=== PATIENT | male | born 1990 | race American Indian/Alaskan Native ===

== ENCOUNTER 2018-08-17 21:25 | Emergency (ER) | payer SELFPAY ==
--- NOTE | 2018-08-17 21:44 | ED PDOC ---
Arrival/HPI - General Time Seen by Provider: 08/17/18 21:44 Historian: Patient - History of Present Illness Narrative History of Present Illness (Text): 08/17/18 21:44 27 y/o male, no significant pmh, nkda, c/o lt. sided neck pain x 2 days with no fall or trauma. Pt. stated that he was sleeping on the floor without pillow about 2 days ago, woke up with lt. sided neck pain, no fever or chills, no headache (Pt. disagreed with the triage) or night sweat, no neck stiffness, no change in vision, no pain medication taken at home, no rash, no other medical or psychological complaints. I reviewed the triaging note, and the patient disagree with the triage Past Medical History - Provider Review Nursing Documentation Reviewed: Yes Family/Social History - Physician Review Nursing Documentation Reviewed: Yes Family/Social History: Unknown Family HX Allergies/Home Meds Allergies/Adverse Reactions: Allergies No Known Allergies Allergy (Verified 08/17/18 22:01) Review of Systems - Review of Systems Constitutional: absent: Fatigue, Fevers Eyes: absent: Vision Changes ENT: absent: Hearing Changes Respiratory: absent: SOB, Cough Cardiovascular: absent: Chest Pain Gastrointestinal: absent: Abdominal Pain, Nausea, Vomiting Musculoskeletal: Neck Pain. absent: Arthralgias, Back Pain, Joint Swelling, Myalgias Skin: absent: Rash, Pruritis Neurological: absent: Headache, Dizziness Psychiatric: absent: Anxiety, Depression, Suicidal Ideation Physical Exam Vital Signs Reviewed: Yes Temperature: Afebrile Blood Pressure: Hypertensive Pulse: Regular Respiratory Rate: Normal Appearance: Positive for: Well-Appearing, Non-Toxic Pain Distress: Moderate Mental Status: Positive for: Alert and Oriented X 3 - Systems Exam Head: Present: Atraumatic, Normocephalic Pupils: Present: PERRL Extroacular Muscles: Present: EOMI Conjunctiva: Present: Normal Ears: Present: NORMAL TM, Normal Canal. No: Erythema Mouth: Present: Moist Mucous Membranes Nose (External): Present: Atraumatic. No: Abrasion, Contusion, Laceration Nose (Internal): Present: Normal Inspection, No Active Bleeding. No: Rhinorrhea, Septal Deviation, Septal Hematoma, Epistaxis Neck: Present: Normal Range of Motion, Paraspinal Tenderness (lt. paraspinal muscle region), Trachea Midline. No: Meningeal Signs, MIDLINE TENDERNESS, Lymphadenopathy Respiratory/Chest: Present: Clear to Auscultation, Good Air Exchange. No: Respiratory Distress, Accessory Muscle Use Cardiovascular: Present: Regular Rate and Rhythm, Normal S1, S2. No: Murmurs Abdomen: No: Tenderness, Distention, Peritoneal Signs, Rebound, Guarding Back: Present: Normal Inspection. No: CVA Tenderness, Midline Tenderness, Paraspinal Tenderness Upper Extremity: Present: Normal Inspection. No: Cyanosis, Edema Lower Extremity: Present: Normal Inspection. No: Edema Neurological: Present: GCS=15, CN II-XII Intact, Speech Normal, Motor Func Grossly Intact, Gait Normal, Memory Normal Skin: Present: Warm, Dry, Normal Color. No: Rashes Psychiatric: Present: Alert, Oriented x 3, Normal Insight, Normal Concentration Medical Decision Making ED Course and Treatment: 08/17/18 22:08 -Toradol 60mg IM -Pt. request to be discharged home. -Discharge home with naproxen, flexeril, bed rest, heat compression, follow up with your own pmd within 2 days, return to the ER for any new or worsening signs or symptoms. 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 Disposition/Present on Arrival - Present on Arrival Any Indicators Present on Arrival: No History of DVT/PE: No History of Uncontrolled Diabetes: No Urinary Catheter: No History of Decub. Ulcer: No - Disposition Have Diagnosis and Disposition been Completed?: Yes Diagnosis: Neck pain, Trapezius strain Disposition: HOME/ ROUTINE Disposition Time: 22:09 Patient Plan: Discharge Patient Problems: Current Active Problems Problem Status Onset Neck pain Acute Trapezius strain Acute Condition: GOOD Additional Instructions: -Discharge home with naproxen, flexeril, bed rest, heat compression, follow up with your own pmd within 2 days, return to the ER for any new or worsening signs or symptoms. Prescriptions: Cyclobenzaprine [Cyclobenzaprine HCl] 10 mg PO TID PRN #21 tab PRN Reason: Other Naproxen 500 mg PO BID PRN #20 tablet PRN Reason: Other Referrals: Bayron Curtis III, MD [Medical Doctor] - Follow up with primary Forms: WORK NOTE
[2018-08-17 21:52] VITALS: BMI 24.3
[2018-08-17 23:05] VITALS: BP 148/82; PULSE 82; RESP 18; TEMP 97.8; O2SAT 98
== END 2018-08-17 23:13 | disposition home or self-care (01) ==
LOC: ED 21:25
DX: S29.012A Strain of muscle and tendon of back wall of thorax, initial encounter (principal); X50.1XXA Overexertion from prolonged static or awkward postures, initial encounter; Y92.89 Other specified places as the place of occurrence of the external cause; M54.2 Cervicalgia
CPT/HCPCS: 96372; 99283; J1885

== ENCOUNTER 2018-12-10 18:14 | Emergency (ER) | payer SELFPAY ==
[2018-12-10 18:46] VITALS: BMI 25.5
[2018-12-10 18:48] VITALS: TEMP 98
--- NOTE | 2018-12-10 19:09 | ED PDOC ---
Arrival/HPI - General Chief Complaint: Cough, Cold, Congestion Time Seen by Provider: 12/10/18 18:59 Historian: Patient - History of Present Illness Narrative History of Present Illness (Text): 12/10/18 19:07 28-year-old male w/ no PMH, complaining of cough, cold, sore throat and congestion x 4 days, and then this morning he woke up with a hoarse voice. Otherwise reports of fever, chills, headache, chest pain, shortness of breath, nausea, vomiting, recent travel. Past Medical History - Infectious Disease Hx of Infectious Diseases: None - Cardiac Hx Cardiac Disorders: No - Pulmonary Hx Respiratory Disorders: No - Neurological Hx Neurological Disorder: No - HEENT Hx HEENT Disorder: No - Renal Hx Renal Disorder: Yes Other/Comment: left kidney mass removal - Endocrine/Metabolic Hx Endocrine Disorders: No - Hematological/Oncological Hx Blood Disorders: No - Integumentary Hx Dermatological Disorder: No - Musculoskeletal/Rheumatological Hx Musculoskeletal Disorders: No - Gastrointestinal Hx Gastrointestinal Disorders: No - Genitourinary/Gynecological Hx Genitourinary Disorders: No - Psychiatric Hx Psychophysiologic Disorder: No Hx Substance Use: No Family/Social History Family/Social History: No Known Family HX Smoking Status: Hookah Hx Alcohol Use: Yes Frequency of alcohol use: Socially Hx Substance Use: No Allergies/Home Meds Allergies/Adverse Reactions: Allergies No Known Allergies Allergy (Verified 12/10/18 18:46) Review of Systems - Review of Systems Constitutional: absent: Fatigue, Fevers ENT: Sore Throat, Rhinorrhea, Sinus Congestion Respiratory: Cough. absent: SOB, Sputum, Wheezing Cardiovascular: absent: Chest Pain, Palpitations Gastrointestinal: absent: Abdominal Pain, Nausea, Vomiting Genitourinary Male: absent: Dysuria, Frequency Musculoskeletal: absent: Arthralgias, Back Pain, Neck Pain Skin: absent: Rash, Pruritis, Skin Lesions Neurological: absent: Headache, Dizziness Physical Exam Vital Signs Temp Pulse Resp BP Pulse Ox 12/10/18 18:48 98.0 F 66 18 124/75 97 Temperature: Afebrile Blood Pressure: Normal Pulse: Regular Respiratory Rate: Normal Appearance: Positive for: Well-Appearing, Non-Toxic, Comfortable Pain Distress: None Mental Status: Positive for: Alert and Oriented X 3 - Systems Exam Head: Present: Atraumatic, Normocephalic Pupils: Present: PERRL Extroacular Muscles: Present: EOMI Conjunctiva: Present: Normal Ears: Present: Normal, NORMAL TM. No: Erythema Mouth: Present: Moist Mucous Membranes Pharnyx: Present: Normal, Other (+hoarse voice, speaking in full sentences, no muffled voice). No: ERYTHEMA, EXUDATE, TONSILS ENLARGED, Peritonsilar Swelling, Uvular Deviation, Strider Neck: Present: Normal Range of Motion. No: Lymphadenopathy Respiratory/Chest: Present: Clear to Auscultation, Good Air Exchange. No: Respiratory Distress, Accessory Muscle Use Cardiovascular: Present: Regular Rate and Rhythm, Normal S1, S2. No: Murmurs Abdomen: No: Tenderness, Distention, Peritoneal Signs Back: Present: Normal Inspection Upper Extremity: Present: Normal Inspection. No: Cyanosis, Edema Lower Extremity: Present: Normal Inspection. No: Edema Neurological: Present: GCS=15, CN II-XII Intact, Speech Normal Skin: Present: Warm, Dry, Normal Color. No: Rashes Psychiatric: Present: Alert, Oriented x 3, Normal Insight, Normal Concentration Medical Decision Making ED Course and Treatment: 12/10/18 19:09 Advised to follow up with the clinic in 1-2 days without fail. Advised to take medication as prescribed. Return to the emergency room at any time for any new or worsening symptoms. Patient states he fully agrees with and understands discharge instructions. States that he agrees with the plan and disposition. Verbalized and repeated discharge instructions and plan. I have given the patient opportunity to ask any additional questions. 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 Disposition/Present on Arrival - Present on Arrival Any Indicators Present on Arrival: No History of DVT/PE: No History of Uncontrolled Diabetes: No Urinary Catheter: No History of Decub. Ulcer: No History Surgical Site Infection Following: None - Disposition Have Diagnosis and Disposition been Completed?: Yes Diagnosis: Laryngitis, Upper respiratory infection Disposition: HOME/ ROUTINE Disposition Time: 19:10 Patient Plan: Discharge Patient Problems: Current Active Problems Problem Status Onset Laryngitis Acute Upper respiratory infection Acute Condition: STABLE Discharge Instructions (ExitCare): Laryngitis, Viral Upper Respiratory Infection, Adult (DC) Additional Instructions: Thank you for letting us take care of you today. You were treated for laryngitis, URI. The emergency medical care you received today was directed at your acute symptoms. If you were prescribed any medication, please fill it and take as directed. It may take several days for your symptoms to resolve. Return to the Emergency Department if your symptoms worsen, do not improve, or if you have any other problems. Please contact the clinic in 2 days for re-evaluation and follow up. Bring any paperwork you were given at discharge with you along with any medications you are taking to your follow up visit. Our treatment cannot replace ongoing medical care by a primary care provider (PCP) outside of the emergency department. Thank you for allowing the [facility] team to be part of your care today. Prescriptions: Guaifenesin 400 mg PO QID #20 tablet Ibuprofen [Motrin Tab] 600 mg PO QID PRN #20 tab PRN Reason: Pain, Moderate (4-7) Forms: [employer] (Pakistani)
[2018-12-10 20:51] VITALS: BP 125/84; PULSE 68; RESP 16; O2SAT 100
== END 2018-12-10 19:30 | disposition home or self-care (01) ==
LOC: ED 18:14
DX: J04.0 Acute laryngitis (principal); Z72.0 Tobacco use